=== PATIENT | female | born 1955 | race Caucasian/White ===

== ENCOUNTER 2020-03-13 15:21 | Outpatient (CLI) | payer MEDICARE, SELFPAY ==
[2020-03-13 16:58] LABS: Thyroid Stimulating Hormone 3.86 uIU/mL (0.27-4.20)
== END 2020-03-13 15:22 | disposition home or self-care (01) ==
LOC: LAB 15:27
PROVIDERS: PCP Family Medicine; Visit Provider Dermatology
DX: L65.9 Nonscarring hair loss, unspecified (principal)
CPT/HCPCS: 84439; 84443

== ENCOUNTER 2020-09-07 15:03 | Outpatient (CLI) | payer MEDICARE, SELFPAY ==
--- NOTE | 2020-09-07 15:23 | XR_ITS ---
WS: [id number] SCREENING DEXA SCAN [employer] CLINICAL INFORMATION: OSTEOPOROSIS COMPARISON: 2015 FINDINGS: The L1-L4 bone mineral density measures 0.989 g/cm2. This corresponds to a T score score of -1.6 and Z score of 0.3. Left femoral neck bone mineral density measures 0.668 g/cm2. This corresponds to a T score of -2.7 an d Z score of -1.3. Right femoral neck bone mineral density measures 0.679 g/cm2. This corresponds to a T score -2.6of an d Z score of -1.2. Mean femoral neck bone mineral density measures 0.674 g/cm2. This corresponds to a T score of -2.7 an d Z score of -1.2. XR/XR DEXA axial skeleton* [id number] IMPRESSION: Osteopenia lumbar spine. Osteoporosis in the femoral necks.. Patient's FRAX calculated 10 year probability for major osteoporotic fracture i s 24.2 % and osteoporotic hip fracture is 4.6%.
== END 2020-09-07 15:04 | disposition home or self-care (01) ==
PROVIDERS: PCP Family Medicine; Visit Provider Family Medicine
DX: Z13.820 Encounter for screening for osteoporosis (principal); M81.0 Age-related osteoporosis without current pathological fracture; M85.88 Other specified disorders of bone density and structure, other site
CPT/HCPCS: 77080

== ENCOUNTER 2020-11-30 06:00 | Outpatient (RCR) | payer MEDICARE, SELFPAY | END 2020-12-23 23:59 | disposition home or self-care (01) | LOC: SPT 06:00 | PROVIDERS: PCP Family Medicine; Referring Provider Family Medicine; Visit Provider Family Medicine | DX: M54.9 Dorsalgia, unspecified (principal); G89.29 Other chronic pain | CPT/HCPCS: 97110; 97161 ==

== ENCOUNTER 2020-12-24 06:00 | Outpatient (RCR) | payer MEDICARE, SELFPAY | END 2021-01-23 23:59 | disposition home or self-care (01) | LOC: SPT 06:00 | PROVIDERS: PCP Family Medicine; Referring Provider Family Medicine; Visit Provider Family Medicine | DX: M54.9 Dorsalgia, unspecified (principal); G89.29 Other chronic pain | CPT/HCPCS: 97110 ==

== ENCOUNTER 2021-07-05 08:23 | Outpatient (CLI) | payer MEDICARE, SELFPAY ==
--- NOTE | 2021-07-05 08:35 | FL_ITS ---
WS: [id number] UPPER GI AND SMALL BOWEL THROUGH 07/05/2021 TECHNIQUE: Barium was ingested in the upright and ORTIZ prone positions with fluoroscopic monitoring an d spot films. Following additional ingestion of barium overhead radiographs of the abdomen were obtai sherin. After the barium reached the colon the small bowel loops were examined with palpation under fluorosco py. UPPER GI: The esophagus demonstrated intermittent tertiary contractions however there was no retention of bariu m within the esophagus. There is no hiatal hernia or reflux. No mucosal abnormality or constriction. No mass effect. The stomach was pliable and demonstrated no normal fold pattern. There is normal peristalsis without tension. No ulceration or mass was identified. The pylorus duodenal bulb and duodenal sweep were normal without ulceration or mass effect. SMALL BOWEL FOLLOW THROUGH Small bowel was pliable and the loop separable. Small bowel was of normal caliber and demonstrated normal mucosal pattern in the jejunum and ileum. T here were no strictures or mass effect. Terminal ileum is normal. The passage of contrast through the small bowel to the colon was rapid, less than 15 minutes. FL/FL upperGI air smallbowel ser* IMPRESSION: No significant abnormality of the esophagus, stomach, duodenum, or small bowel.
[2021-07-05] MEDS: diatrizoate meglumine 120 mL Sol PO (10:19)
== END 2021-07-05 08:24 | disposition home or self-care (01) ==
LOC: RAD 08:31
PROVIDERS: PCP Family Medicine; Visit Provider Family Medicine
DX: R10.13 Epigastric pain (principal)
CPT/HCPCS: 74246; 74248

== ENCOUNTER → 2022-05-06 10:47 | Outpatient (BNVA) | payer MEDICARE, SELFPAY | PROVIDERS: PCP Family Medicine; Visit Provider Podiatrist Foot & Ankle Surgery | DX: B35.3 Tinea pedis (principal); B35.1 Tinea unguium | CPT/HCPCS: 99204 ==

== ENCOUNTER → 2022-11-12 11:28 | Outpatient (BNVA) | payer MEDICARE, SELFPAY | PROVIDERS: PCP Family Medicine; Visit Provider Nurse Practitioner Family | DX: B35.3 Tinea pedis (principal); B35.1 Tinea unguium; L81.4 Other melanin hyperpigmentation; D22.5 Melanocytic nevi of trunk; L85.3 Xerosis cutis; Z71.89 Other specified counseling; L57.8 Other skin changes due to chronic exposure to nonionizing radiation; L57.0 Actinic keratosis | CPT/HCPCS: 17000; 17003; 99214 ==

== ENCOUNTER → 2023-02-12 08:23 | Outpatient (BNVA) | payer MEDICARE, SELFPAY | PROVIDERS: PCP Family Medicine; Visit Provider Family Medicine | DX: Z00.00 Encounter for general adult medical examination without abnormal findings (principal); Z79.899 Other long term (current) drug therapy | CPT/HCPCS: 80053; 80061; 84443; 85025 ==

== ENCOUNTER → 2023-02-24 13:34 | Outpatient (BNVA) | payer MEDICARE, SELFPAY | PROVIDERS: PCP Family Medicine; Referring Provider Family Medicine; Visit Provider Surgery | DX: Z12.11 Encounter for screening for malignant neoplasm of colon (principal) | CPT/HCPCS: 99024; 99203 ==

== ENCOUNTER 2023-02-27 14:27 | Outpatient (CLI) | payer MEDICARE, SELFPAY ==
--- NOTE | 2023-02-27 14:30 | XR_ITS ---
WS: [id number] SCREENING DEXA SCAN [facility] CLINICAL INFORMATION: f/u COMPARISON: 09/07/2020 FINDINGS: The L1-L4 bone mineral density measures 1.004 g/cm2. This corresponds to a T score score of -1.5 and Z score of 0.6. Left femoral neck bone mineral density measures 0.640 g/cm2. This corresponds to a T score of -2.9 an d Z score of -1.2. Right femoral neck bone mineral density measures 0.651 g/cm2. This corresponds to a T score -2.8of an d Z score of -1.2. Mean femoral neck bone mineral density measures 0.646 g/cm2. This corresponds to a T score of -2.9 an d Z score of -1.2. IMPRESSION: Osteopenia lumbar spine. Osteoporosis femoral necks. Patient's FRAX calculated 10 year probability for major osteoporotic fracture is 27.4% and osteoporot ic hip fracture is 9.8%. Lumbar spine 1.5% increase bone mineral density Femoral necks -4.2% decrease bone mineral density
== END 2023-02-27 14:28 | disposition home or self-care (01) ==
LOC: RAD 14:30
PROVIDERS: PCP Family Medicine; Visit Provider Family Medicine
DX: M81.0 Age-related osteoporosis without current pathological fracture (principal); Z00.00 Encounter for general adult medical examination without abnormal findings
CPT/HCPCS: 77080

== ENCOUNTER → 2023-05-13 10:22 | Outpatient (BNVA) | payer MEDICARE, SELFPAY | PROVIDERS: PCP Family Medicine; Visit Provider Nurse Practitioner Family | DX: B35.3 Tinea pedis (principal); B35.1 Tinea unguium; L57.0 Actinic keratosis; L82.1 Other seborrheic keratosis; L81.4 Other melanin hyperpigmentation | CPT/HCPCS: 17000; 99214 ==

== ENCOUNTER → 2023-06-18 08:14 | Outpatient (BNVA) | payer MEDICARE, SELFPAY | PROVIDERS: PCP Family Medicine; Visit Provider Family Medicine | DX: K29.70 Gastritis, unspecified, without bleeding (principal) | CPT/HCPCS: 80053; 83690; 85025; 86140 ==

== ENCOUNTER 2023-06-26 05:55 | Day surgery (SDC) | payer MEDICARE, SELFPAY ==
[2023-06-26 06:14] VITALS: BP 111/86; PULSE 116; RESP 16; TEMP 36.5; O2SAT 98; BMI 20.5
[2023-06-26] MEDS: sodium chloride 0.9% 1,000 ML 30 ML IV (06:27)
--- NOTE | 2023-06-26 06:45 | ANES.PREANE2 ---
Pre-Anesthetic Assessment Height/Weight: Height 1.63 m Weight 54.431 kg Temp Pulse Resp BP Pulse Ox O2 Del Method 97.7 F 116 H 16 111/86 98 Room Air 06/26/23 06:14 06/26/23 06:14 06/26/23 06:14 06/26/23 06:14 06/26/23 06:14 06/26/23 06:14 Operation Date: 06/26/23 07:00 Proposed Procedures p 19968 colon G0121 screen colon A risk Z12.11(Not Applicable) - Dale Howe MD Last intake: Intake Last Liquid Date 06/25/23 Last Liquid Time 20:00 Last Solid Date 06/24/23 Last Solid Time 18:00 Social No alcohol and No tobacco Exam alert, oriented x 3, clear to auscultation bilaterally and regular rate & rhythm Airway Submandibular: within normal limits Cervical ROM: within normal limits Mallampati: Class I History/ROS No significant history except as noted and No significant complaints Pulmonary None reported CV/HEM None reported None reported Hepatic None reported GI None reported Metabolic None reported Musc/skel None reported Neuropsych None reported Anesthetic Plan ASA status: 1 Anesthesia: Anesthesia Evaluation Medications/Allergies Home Medications Medication Instructions Recorded Confirmed Last Taken Type clotrimazole-betamethasone 1 1 applic topical BID 4 weeks #45 05/06/22 06/24/23 06/23/23 Rx %-0.05 % topical cream grams ciclopirox 0.77 % topical cream 1 applic topical BID 4 weeks #30 09/02/22 06/26/23 06/25/23 Rx grams metronidazole 0.75 % topical gel 1 applic topical BID #45 grams 09/02/22 06/24/23 06/26/23 Rx miconazole nitrate 2 % topical 1 applic topical DAILY #85 grams 09/02/22 06/24/23 Unknown Rx powder (Zeasorb AF) alprazolam 0.25 mg tablet 0.25 mg PO BID PRN anxiety #30 tabs 12/11/22 06/24/23 06/25/23 Rx escitalopram oxalate 10 mg tablet 10 mg PO DAILY 06/24/23 06/24/23 06/24/23 History Allergies Allergy/AdvReac Type Severity Reaction Status Date / Time No Known Allergies Allergy Verified 06/24/23 07:50 Current Medications Generic Name Dose Route Start Last Admin Trade Name Freq PRN Reason Stop Dose Admin Sodium Chloride 1,000 mls @ 30 mls/hr 06/26/23 06:15 06/26/23 06:27 Sodium Chloride 0.9% IV 30 mls/hr .Q24H JOSUÉ Administration PFSH Anesthesia Medical History No pertinent past medical history Social History Smoking and tobacco/nicotine status: never used tobacco/nicotine Alcohol intake: never Data Anesthesia Cardiac Studies: No Data to Display
--- NOTE | 2023-06-26 06:45 | W.PM.OPSFHP ---
Same Day Surgery H&P Indication for Procedure/HPI DATE OF PROCEDURE: June 26, 2023 CHIEF COMPLAINT/INDICATIONFOR SURGICAL PROCEDURE: need for screening colonoscopy PREOP DIAGNOSIS: need for screening colonoscopy PLANNED PROCEDURE: Operation Date: 06/26/23 07:00 Proposed Procedures p 16049 colon G0121 screen colon A risk Z12.11(Not Applicable) - Dale Howe MD Medications/Allergies* Home Medications Medication Instructions Recorded Confirmed Type escitalopram oxalate 10 mg tablet 10 mg PO DAILY 06/24/23 06/24/23 History Allergies/Adverse Reactions Allergy/AdvReac Type Severity Reaction Status Date / Time No Known Allergies Allergy Verified 06/24/23 07:50 Current Medications: Generic Name Dose Route Start Last Admin Trade Name Freq PRN Reason Stop Dose Admin Sodium Chloride 1,000 mls @ 30 mls/hr 06/26/23 06:15 06/26/23 06:27 Sodium Chloride 0.9% IV 30 mls/hr .Q24H JOSUÉ Administration Pertinent History/Comorbid Conditions* Medical History (Updated 06/18/23 @ 08:05 by Michael Fox MD) No pertinent past medical history Social History Smoking and tobacco/nicotine status: never used tobacco/nicotine Alcohol intake: never Pertinent Exam Findings alert, oriented x 3, clear to auscultation bilaterally and regular rate & rhythm Recommendations Surgery/Procedure today Coding Level of Care Code Acute Code for Chg Danyelle
[2023-06-26 07:26] VITALS: BP 116/59; PULSE 105; RESP 16; TEMP 36.2; O2SAT 94
[2023-06-26 07:36] VITALS: BP 97/57; PULSE 87; RESP 16; O2SAT 93
[2023-06-26 07:45] VITALS: BP 90/58; PULSE 86; RESP 16; O2SAT 95
[2023-06-26 07:53] VITALS: BP 107/59; PULSE 80; RESP 16; O2SAT 96
--- NOTE | 2023-06-26 08:00 | ANE.PACU2 ---
Inpatient post-anesthesia follow up: Airway intact: Yes Vital signs: Temperature 97.1 F Pulse Rate 80 Respiratory Rate 16 Blood Pressure 107/59 Pulse Oximetry 96 Oxygen Delivery Me thod Room Air Oxygen Flow Rate Fraction of Inspir ed Oxygen Hydration adequate: Yes Nausea and vomiting: No Pain level: 1 Mental status: Baseline
== END 2023-06-26 08:09 | disposition home or self-care (01) ==
PROVIDERS: PCP Family Medicine; Visit Provider Surgery
PROC: 0DJD8ZZ Inspection of Lower Intestinal Tract, Via Natural or Artificial Opening Endoscopic (ICD-10-PCS; CPT 45378; principal; 2023-06-26 07:00)
DX: Z12.11 Encounter for screening for malignant neoplasm of colon (principal); K57.30 Diverticulosis of large intestine without perforation or abscess without bleeding
CPT/HCPCS: G0121; J2704; J7030

== ENCOUNTER → 2023-11-25 10:20 | Outpatient (BNVA) | payer MEDICARE, SELFPAY | PROVIDERS: PCP Family Medicine; Visit Provider Nurse Practitioner Family | DX: B35.3 Tinea pedis (principal); B35.1 Tinea unguium; L82.1 Other seborrheic keratosis; L81.4 Other melanin hyperpigmentation; L57.0 Actinic keratosis | CPT/HCPCS: 17000; 99214 ==

== ENCOUNTER → 2023-12-23 08:52 | Outpatient (BNVA) | payer MEDICARE, SELFPAY | PROVIDERS: PCP Family Medicine; Visit Provider Nurse Practitioner Family | DX: B35.3 Tinea pedis (principal); B35.1 Tinea unguium; L82.1 Other seborrheic keratosis; L81.4 Other melanin hyperpigmentation | CPT/HCPCS: 99214 ==

== ENCOUNTER → 2024-02-12 09:30 | Outpatient (BNVA) | payer MEDICARE, SELFPAY | PROVIDERS: PCP Family Medicine; Visit Provider Family Medicine | DX: Z00.00 Encounter for general adult medical examination without abnormal findings (principal) | CPT/HCPCS: 80053; 80061; 85025 ==

== ENCOUNTER 2024-02-24 12:25 | Outpatient (CLI) | payer MEDICARE, SELFPAY ==
--- NOTE | 2024-02-24 12:29 | XR_ITS ---
WS: [id number] Exam: XR lumbar spine 2-3V* [id number] Date/Time of Exam: 02/24/2024 12:47 PM Reason For Exam: back pain No acute fracture or dislocation. Degenerative narrowing of the L3-4 and L4-5 discs. There is also na rrowing of the L1-2 disc. There is spondylosis. Moderate levoscoliosis. Facet DJD at L4-5 and L5-S1. Increased lumbar lordosis. XR/XR lumbar spine 2-3V* [id number] IMPRESSION: 1. Degenerative changes. No fracture or malalignment. 2. Levoscoliosis.
--- NOTE | 2024-02-24 12:29 | XR_ITS ---
WS: [id number] Exam: XR sacroiliac jts m 3V [id number] Date/Time of Exam: 02/24/2024 12:47 PM Reason For Exam: back pain Comparison 05/27/2017. There is mild degenerative change of both SI joints. No fracture or dislocation. There is osteopenia of the sacrum. XR/XR sacroiliac jts m 3V [id number] IMPRESSION: 1. Mild bilateral SI joint DJD. Osteopenia. No other significant finding.
== END 2024-02-24 12:26 | disposition home or self-care (01) ==
LOC: RAD 12:28
PROVIDERS: PCP Family Medicine; Visit Provider Family Medicine
DX: M47.896 Other spondylosis, lumbar region (principal); M48.061 Spinal stenosis, lumbar region without neurogenic claudication; M40.56 Lordosis, unspecified, lumbar region
CPT/HCPCS: 72100; 72202

== ENCOUNTER → 2024-07-15 10:03 | Outpatient (BNVA) | payer MEDICARE, SELFPAY | PROVIDERS: PCP Family Medicine; Visit Provider Nurse Practitioner Family | DX: B35.3 Tinea pedis (principal); B35.1 Tinea unguium; H00.013 Hordeolum externum right eye, unspecified eyelid; L82.1 Other seborrheic keratosis; L57.8 Other skin changes due to chronic exposure to nonionizing radiation; D22.39 Melanocytic nevi of other parts of face; L82.0 Inflamed seborrheic keratosis; R58 Hemorrhage, not elsewhere classified; R20.8 Other disturbances of skin sensation; L53.8 Other specified erythematous conditions; L57.0 Actinic keratosis | CPT/HCPCS: 17000; 17110; 99214 ==

== ENCOUNTER → 2024-09-20 15:19 | Outpatient (BNVA) | payer MEDICARE, SELFPAY | PROVIDERS: PCP Family Medicine; Visit Provider Family Medicine | DX: I49.3 Ventricular premature depolarization (principal) | CPT/HCPCS: 80053; 84443; 85025 ==

== ENCOUNTER 2024-11-05 12:45 | Outpatient (CLI) | payer MEDICARE, SELFPAY ==
--- NOTE | 2024-11-05 12:45 | USCV_ITS ---
Sunshine Lopez Age: 69 Gender: F : 1955 Exam Date: 11/05/2024 13:11 Ordering Phys: Michael Fox MD Technologist: Rock Nixon Exam Location: [facility] [place] Indication: PVC's BP: 128 / 74 HR: 93 Rhythm: Sinus Technical Quality: Adequate MEASUREMENTS (Male / Female) Normal Values 2D ECHO LV Diastolic Diameter PLAX 3.2 cm 4.2 - 5.9 / 3.9 - 5.3 cm IVS Diastolic Thickness 1.3 cm 0.6 - 1.0 / 0.6 - 0.9 cm IVS Systolic Thickness 1.4 cm LVPW Diastolic Thickness 1.4 cm 0.6 - 1.0 / 0.6 - 0.9 cm LVPW Systolic Thickness 1.8 cm LVOT Diameter 2.0 cm LV Ejection Fraction 2D Teich 76.0 % LV Ejection Fraction MOD 4C 75.9 % LV Ejection Fraction MOD 2C 66.6 % LV Ejection Fraction 2C AL 68.1 % LA Diameter 3.1 cm RA Systolic Volume 4C AL 11.6 ml RA Systolic Volume 4C MOD 10.9 ml LA Sys Volume AL 16.8 cm cubed LA Sys Volume Index AL 10.9 cm cubed/m squared Aorta at Sinotubular Diameter 2.0 cm IVC Diameter 1.1 cm M-MODE LA Ao Ratio MM 1.5 AV Cusp Separation MM 1.5 cm DOPPLER MV Peak Velocity 115.0 cm/s MV Area PHT 6.2 cm squared Mitral E to A Ratio 0.7 TV Peak Velocity 231.0 cm/s TR Peak Velocity 253.0 cm/s TR Peak Gradient 25.6 mmHg TR Mean Velocity 212.0 cm/s TR Mean Gradient 18.5 mmHg TR Velocity Time Integral 67.1 cm PV Peak Velocity 108.3 cm/s RV Ejection Time 0.2 s FINDINGS Left Ventricle Normal left ventricular size and systolic function, EF 68%. Mild left ventricular hypertrophy.no regional wall motion abnormalities. . Grade I/IV diastolic dysfunction (abnormal relaxation filling pattern), normal to mildly elevated filling pressures. Right Ventricle The right ventricle is normal in size and function. Right Atrium The right atrium is normal in size. Left Atrium Small atrial septal aneurysm Mitral Valve Trace mitral valve regurgitation. Aortic Valve No gross abnormalities noted Tricuspid Valve No gross abnormalities noted Pulmonic Valve Pulmonic valve not well visualized. Pericardium Normal pericardium without effusion. Aorta Normal ascending aorta dimension. IVC The inferior vena cava appears normal. CONCLUSIONS Normal left ventricular size and systolic function, EF 68%. Mild left ventricular hypertrophy.no regional wall motion abnormalities. . Grade I/IV diastolic dysfunction (abnormal relaxation filling pattern), normal to mildly elevated filling pressures. Trace mitral valve regurgitation. Small atrial septal aneurysm. There is no pericardial effusion. There are no intracardiac masses. No similar previous studies are available for comparison Dr Vivi Hernández MD [facility] (Electronically Signed) Final Date: 05 November 2024 21:27 S
== END 2024-11-05 12:46 | disposition home or self-care (01) ==
LOC: RAD 12:46
PROVIDERS: PCP Family Medicine; Visit Provider Family Medicine
DX: I49.3 Ventricular premature depolarization (principal); I50.30 Unspecified diastolic (congestive) heart failure
CPT/HCPCS: 93306

== ENCOUNTER → 2025-02-14 09:24 | Outpatient (BNVA) | payer MEDICARE, SELFPAY | PROVIDERS: PCP Family Medicine; Visit Provider Nurse Practitioner Family | DX: L57.8 Other skin changes due to chronic exposure to nonionizing radiation (principal); L82.1 Other seborrheic keratosis; L81.4 Other melanin hyperpigmentation; L57.0 Actinic keratosis | CPT/HCPCS: 17000; 99213 ==